=== PATIENT | female | born 1990 | race African-American/Black ===

== ENCOUNTER 2020-02-25 15:57 | Emergency (ER) | payer BC ==
[~2020-02-25] VITALS: Ht 167.6 cm; Wt 99.8 kg
[2020-02-25] MEDS ORDERED: HYDROMORPHONE INJ 2 MG/ML DISP.SYRIN ONE (16:46)
--- NOTE | 2020-02-25 16:55 | NUR ---
L ANKLE PAIN/SWELLING S/P SLIP AND FALL IN THE KITCHEN. PT AAOX4, VSS, RR EVEN & UNALBORED. DENIES CP, SOB, DIZZINESS, N/V, WEAKNESS AT THIS TIME. PT SEEN & EVAL'D BY DR. FULTON. MEDICATED ORDERED, PT TRU WELL. WILL CONT TO MONITOR. [employer] MANAGER @ BS FOR XRAY OF LT ANKLE.
[2020-02-25] MEDS ORDERED: HYDROMORPHONE INJ 0.5 MG/0.5 ML SYRINGE IM ONE (17:00)
[2020-02-25 17:43] LABS: BASOPHILS % (AUTO) 0.4 % (0.0-2.0); EOSINOPHILS % (AUTO) 0.3 % (0.0-6.0); HEMATOCRIT 41 % (33-45); HEMOGLOBIN 13.8 g/dL (11.5-14.8); LYMPHOCYTES # (AUTO) 2.5 /CMM (0.8-4.8); MEAN CORPUSCULAR HGB CONC 34 g/dl (31.0-36.0); MEAN CORPUSCULAR VOLUME 91 fL (82-100); MONOCYTES # (AUTO) 0.7 /CMM (0.1-1.30); MONOCYTES % (AUTO) 9.1 % (2.0-12.0); NEUTROPHILS # (AUTO) 4.6 /CMM (1.8-8.9); NEUTROPHILS % (AUTO) 58.2 % (43.0-81.0); PLATELET COUNT (AUTO) 355 /CMM (150-450); RED BLOOD CELL COUNT(AUTO) 4.52 MIL/uL (4.0-5.2); WHITE BLOOD COUNT (AUTO) 7.9 K/uL (4.3-11.0)
--- NOTE | 2020-02-25 17:44 | NUR ---
Milo Hernandez PA-C [phone] for orthopedic consult
[2020-02-25] MEDS ORDERED: PROPOFOL 200 MG/20 ML VIAL IV ONE (18:00)
[2020-02-25] MEDS ORDERED: KETAMINE HCL (500MG/10ML) 50 MG/ML VIAL IV ONE (18:00)
--- NOTE | 2020-02-25 18:02 | NUR ---
IV LINE ESTABLISHED R RASHAUN [id number].
[2020-02-25 18:03] LABS: CALCIUM, SERUM 9.3 mg/dL (8.5-10.1); CREATININE 0.9 mg/dL (0.6-1.3); POTASSIUM 4.1 mmol/L (3.5-5.1)
[2020-02-25] MEDS ORDERED: KETAMINE HCL (500MG/10ML) 50 MG/ML VIAL ONE (18:04)
[2020-02-25] MEDS ORDERED: PROPOFOL 20 ML IV ONE (18:04)
--- NOTE | 2020-02-25 18:49 | NUR ---
CALLED [facility] FOR A DR TO
--- NOTE | 2020-02-25 19:05 | NUR ---
REPORT GIVEN TO RAMÓN ABREU FOR GINETTE.
--- NOTE | 2020-02-25 19:13 | NUR ---
pt remains in gurney, stable condition awaiting discharge
--- NOTE | 2020-02-25 19:37 | NUR ---
Patient discharged to home in stable condition. Written and verbal after care instructions given. Patient verbalizes understanding of instruction.
[2020-02-25 19:39] VITALS: BP 138/83
== END 2020-02-25 19:39 | disposition home or self-care (01) ==
LOC: ER 16:05
DX: S92.192A Other fracture of left talus, initial encounter for closed fracture (principal); S93.05XA Dislocation of left ankle joint, initial encounter; W01.0XXA Fall on same level from slipping, tripping and stumbling without subsequent striking against object, initial encounter; Y93.89 Activity, other specified; Y92.090 Kitchen in other non-institutional residence as the place of occurrence of the external cause; Y99.8 Other external cause status
CPT/HCPCS: 28435; 36415; 73600; 73610; 80048; 85025; 85730; 96372; 99152; 99285; J1170; J2704; J3490; G0500